=== PATIENT | female | born 1965 | race Caucasian/White ===

== ENCOUNTER 2023-06-19 13:15 | Emergency (ER) | payer OTHER ==
[~2023-06-19] VITALS: Ht 167.6 cm; Wt 78.0 kg
[~2023-06-19 13:15] MED LIST: AMLO5 PO; ASPI81CH PO; FLONASE ALLERG9.9 ML; HYOS.125 SL; IBUP600 PO; MECL12.5 PO; NEOPOLHCSU RIGHTEAR; Norco 5-325 Ta1 EACH PO; ONDA4 PO; OXYACE7.5T PO; PROC25S PR
[2023-06-19 14:17] LABS: BASOPHILS ABSOLUTE AUTO 0.08 K/mm3 (0.00-0.23); BASOPHILS PERCENT AUTO 1 % (0-2); EOSINOPHILS ABSOLUTE AUTO 0.13 K/mm3 (0.00-0.68); EOSINOPHILS PERCENT AUTO 1 % (0-6); Hematocrit 39.4 % (33.0-51.0); Hemoglobin 13.4 g/dL (11.5-16.0); IMMATURE GRAN ABSOLUTE AUTO 0.05 K/mm3 (0.00-0.10); IMMATURE GRAN PERCENT AUTO 1 % (0-1); LYMPHOCYTES ABSOLUTE AUTO 2.94 K/mm3 (0.84-5.20); LYMPHOCYTES PERCENT AUTO 32 % (21-46); MONOCYTES ABSOLUTE AUTO 0.58 K/mm3 (0.16-1.47); MONOCYTES PERCENT AUTO 6 % (4-13); Mean Corpuscular HGB 32.4 pg (26.0-34.0); Mean Corpuscular Volume 95 fL (80-100); Mean Platelet Volume 9.7 fL (9.1-12.4); NEUTROPHILS ABSOLUTE AUTO 5.38 K/mm3 (1.96-9.15); NEUTROPHILS PERCENT AUTO 59 % (41-73); Platelet Count 349 K/mm3 (150-400); RDW Coefficient Variation 13.1 % (11.7-14.2); RDW Standard Deviation 46.5 fL (35.1-46.3); Red Blood Cell Count 4.13 M/mm3 (3.80-5.20); White Blood Cell Count 9.16 K/mm3 (4.00-11.30)
[2023-06-19 14:43] LABS: Albumin, Blood 3.7 g/dL (3.4-5.0); Albumin/Globulin Ratio 1.2 (0.8-1.8); Bilirubin, Total 0.3 mg/dL (0.1-1.0); Bun/Creatinine Ratio 22.2 (12.0-20.0); Calcium, Blood 8.8 mg/dL (8.5-10.1); Creatinine, Blood 0.72 mg/dL (0.40-1.00); Potassium, Blood 3.6 mmol/L (3.5-5.5); Total Protein, Blood 6.7 g/dL (6.4-8.2)
[2023-06-19 18:15] VITALS: BP 140/81
== END 2023-06-19 18:13 | disposition home or self-care (01) ==
LOC: ER 13:15
PROVIDERS: Physician Assistant
DX: R51.9 Headache, unspecified (principal); Z79.899 Other long term (current) drug therapy; Z79.82 Long term (current) use of aspirin; Z87.891 Personal history of nicotine dependence
CPT/HCPCS: 70450; 70496; 80053; 85025; 93005; 93010; 96361; 96374-59; 96375-59; 99284-25; J0780; J1100; J1200; J2405; J7030; Q9967

== ENCOUNTER 2023-10-01 15:22 | Inpatient (IN) | payer OTHER ==
[~2023-10-01] VITALS: Ht 170.2 cm; Wt 85.7 kg
[2023-10-01 16:02] LABS: BASOPHILS ABSOLUTE AUTO 0.06 K/mm3 (0.00-0.23); BASOPHILS PERCENT AUTO 0 % (0-2); EOSINOPHILS ABSOLUTE AUTO 0.04 K/mm3 (0.00-0.68); EOSINOPHILS PERCENT AUTO 0 % (0-6); Hematocrit 39.5 % (33.0-51.0); Hemoglobin 13.4 g/dL (11.5-16.0); IMMATURE GRAN ABSOLUTE AUTO 0.06 K/mm3 (0.00-0.10); IMMATURE GRAN PERCENT AUTO 0 % (0-1); LYMPHOCYTES ABSOLUTE AUTO 2.22 K/mm3 (0.84-5.20); LYMPHOCYTES PERCENT AUTO 14 % (21-46); MONOCYTES ABSOLUTE AUTO 1.52 K/mm3 (0.16-1.47); MONOCYTES PERCENT AUTO 9 % (4-13); Mean Corpuscular HGB 32.3 pg (26.0-34.0); Mean Corpuscular HGB Conc 33.9 g/dL (31.5-36.5); Mean Corpuscular Volume 95 fL (80-100); Mean Platelet Volume 9.8 fL (9.1-12.4); NEUTROPHILS ABSOLUTE AUTO 12.24 K/mm3 (1.96-9.15); NEUTROPHILS PERCENT AUTO 76 % (41-73); Platelet Count 335 K/mm3 (150-400); RDW Coefficient Variation 12.9 % (11.7-14.2); RDW Standard Deviation 45.2 fL (35.1-46.3); Red Blood Cell Count 4.15 M/mm3 (3.80-5.20); White Blood Cell Count 16.14 K/mm3 (4.00-11.30)
[2023-10-01 16:29] LABS: Albumin, Blood 3.8 g/dL (3.4-5.0); Bun/Creatinine Ratio 13.7 (12.0-20.0); Calcium, Blood 9.4 mg/dL (8.5-10.1); Creatinine, Blood 0.8 mg/dL (0.40-1.00); Globulin, Blood 3.9 g/dL (2.2-4.0); Potassium, Blood 4.1 mmol/L (3.5-5.5); Total Protein, Blood 7.7 g/dL (6.4-8.2)
[2023-10-01 17:19] LABS: Source, Urine Clean Catch
[2023-10-01 17:24] LABS: Appearance, Urine Clear (Clear); Bilirubin, Urine Neg (Neg); Blood, Urine Neg (Neg); Color, Urine Yellow (P-Yellow); Glucose Qualitative, Urine Neg (Neg); Ketones, Urine Neg (Neg); Leukocyte Esterase, Urine Neg (Neg); Nitrite, Urine Neg (Neg); Protein, Urine 1+ (Neg); Urobilinogen, Urine NORM (Normal)
--- NOTE | 2023-10-01 21:27 | NUR ---
REPORT RECIEVED FROM MYRIAM VILLASENOR RN AT 2120 AND AWAITING T/F TO ROOM 338.
[2023-10-01 21:41] VITALS: BP 141/80
[2023-10-01] MEDS ORDERED: AFRIN15 M6 (21:54)
--- NOTE | 2023-10-02 05:30 | NUR ---
T/F AND SUMMARY: PT T/F'D TO ROOM 338 VIA W/C W/ AT BEDSIDE AT 2138. SHE'S A/OX4, CALLS APPROPRIATELY TO SPECIFY NEEDS AND IS PLEASANT AND COOPERATIVE W/CARE. SHE'S AWARE OF LIMITATIONS AND IS UP INDEPENDENTLY BUT KNOWS TO CALL FOR ASSIST PRN. LR INFUSES AT 125 ML/HR AND PT IS TOLERATING CLEAR LIQ'S/ICE CHIPS. INTERMITTENT NAUSEA AND LLQ ABDO PAIN PERSISTS. PRN ZOFRAN, NORCO AND FENTANYL RECIEVED FOR TOLERABLE RELIEF. SHE REQUESTED NASAL SPRAY DECONGESTANT AT HS PER HOME, MADE AWARE AND MED WAS RX'D AND RECIEVED. NO ACUTE CHANGES, VSS/AFEBRILE. WCTM AND REPORT TO DAY RN.
[2023-10-02 05:33] LABS: BASOPHILS ABSOLUTE AUTO 0.04 K/mm3 (0.00-0.23); BASOPHILS PERCENT AUTO 0 % (0-2); EOSINOPHILS ABSOLUTE AUTO 0.03 K/mm3 (0.00-0.68); EOSINOPHILS PERCENT AUTO 0 % (0-6); Hematocrit 35.5 % (33.0-51.0); Hemoglobin 12.1 g/dL (11.5-16.0); IMMATURE GRAN ABSOLUTE AUTO 0.07 K/mm3 (0.00-0.10); IMMATURE GRAN PERCENT AUTO 1 % (0-1); LYMPHOCYTES ABSOLUTE AUTO 1.88 K/mm3 (0.84-5.20); LYMPHOCYTES PERCENT AUTO 13 % (21-46); MONOCYTES ABSOLUTE AUTO 1.39 K/mm3 (0.16-1.47); MONOCYTES PERCENT AUTO 9 % (4-13); Mean Corpuscular HGB 31.9 pg (26.0-34.0); Mean Corpuscular HGB Conc 34.1 g/dL (31.5-36.5); Mean Corpuscular Volume 94 fL (80-100); NEUTROPHILS ABSOLUTE AUTO 11.48 K/mm3 (1.96-9.15); NEUTROPHILS PERCENT AUTO 77 % (41-73); Platelet Count 304 K/mm3 (150-400); RDW Coefficient Variation 12.8 % (11.7-14.2); RDW Standard Deviation 44.2 fL (35.1-46.3); Red Blood Cell Count 3.79 M/mm3 (3.80-5.20); White Blood Cell Count 14.89 K/mm3 (4.00-11.30)
[2023-10-02 06:08] LABS: Calcium, Blood 8.7 mg/dL (8.5-10.1); Creatinine, Blood 0.72 mg/dL (0.40-1.00); Potassium, Blood 3.6 mmol/L (3.5-5.5)
[2023-10-02 06:54] VITALS: BP 132/89
[2023-10-02 07:38] VITALS: BP 126/86
[2023-10-02 15:50] VITALS: BP 141/77
[2023-10-02 19:43] VITALS: BP 138/70
--- NOTE | 2023-10-02 19:46 | NUR ---
SHIFT SUMMARY A&O X 4, VSS. MEDICATED FOR C/O PAIN WITH GOOD RELIEF STATED BY PT. ALSO MEDICATED FOR C/O NAUSEA WITH GOOD RELIEF STATED BY PT. IV ABX GIVEN ORDERED. IS INDEPENDENT FOR RESTROOM USE. APPETITE IS GOOD, IS ON CLR LIQS. PLAN IS FOR PAIN CONTROL, ABX TIL WBC, SED RSTE & CRP DECRESE THEN HOME TO FOLLOW UP WITH GI FOR AN OUT PT COLONOSCOPY.
--- NOTE | 2023-10-03 01:38 | NUR ---
UPDATE PT WOKE UP TO IV OUT OF RIGHT FOREARM, PRESSURE APPLIED AND BANDAGE. NEW IV STARTED.
--- NOTE | 2023-10-03 04:04 | NUR ---
SHIFT SUMMARY NO ACUTE CHANGES. PT IS A&O X4, COOPERATIVE WITH CARE AND ABLE TO MAKE NEEDS KNOWN. INDEPENDENT TO BATHROOM. PAIN ASSESSED; MEDICATED PER EMAR-PT STATES RELIEF. DENIES CHEST PAIN/PRESSURE/TIGHTNESS. BED IS LOCKED IN THE LOWEST POSITION WITH CALL LIGHT IN REACH. NO DISTRESS NOTED AT THIS TIME.
[2023-10-03 04:43] VITALS: BP 137/66
[2023-10-03 05:34] LABS: BASOPHILS ABSOLUTE AUTO 0.04 K/mm3 (0.00-0.23); BASOPHILS PERCENT AUTO 0 % (0-2); EOSINOPHILS ABSOLUTE AUTO 0.11 K/mm3 (0.00-0.68); EOSINOPHILS PERCENT AUTO 1 % (0-6); Hemoglobin 10.8 g/dL (11.5-16.0); IMMATURE GRAN ABSOLUTE AUTO 0.05 K/mm3 (0.00-0.10); IMMATURE GRAN PERCENT AUTO 0 % (0-1); LYMPHOCYTES ABSOLUTE AUTO 2.67 K/mm3 (0.84-5.20); LYMPHOCYTES PERCENT AUTO 23 % (21-46); MONOCYTES ABSOLUTE AUTO 1.13 K/mm3 (0.16-1.47); MONOCYTES PERCENT AUTO 10 % (4-13); Mean Corpuscular HGB Conc 33.8 g/dL (31.5-36.5); Mean Corpuscular Volume 95 fL (80-100); Mean Platelet Volume 10.1 fL (9.1-12.4); NEUTROPHILS ABSOLUTE AUTO 7.75 K/mm3 (1.96-9.15); NEUTROPHILS PERCENT AUTO 66 % (41-73); Platelet Count 273 K/mm3 (150-400); RDW Coefficient Variation 12.8 % (11.7-14.2); RDW Standard Deviation 44.8 fL (35.1-46.3); Red Blood Cell Count 3.37 M/mm3 (3.80-5.20); White Blood Cell Count 11.75 K/mm3 (4.00-11.30)
[2023-10-03 06:10] LABS: Bun/Creatinine Ratio 12.7 (12.0-20.0); Calcium, Blood 8.6 mg/dL (8.5-10.1); Creatinine, Blood 0.71 mg/dL (0.40-1.00); Potassium, Blood 3.3 mmol/L (3.5-5.5)
[2023-10-03 07:27] VITALS: BP 147/78
[2023-10-03 15:21] VITALS: BP 145/72
--- NOTE | 2023-10-03 18:35 | NUR ---
SHIFT SUMMARY A&O X 4, VSS. NO ACUTE CHANGES THIS SHIFT. MEDICATED FOR C/O PAIN & NAUSEA PER EMAR WITH GOOD RELIEF STATED BY PT. APPETITE IS OK, IS MARIS CLR LIQ DIET. IS INDEPENDENT IN THE ROOM FOR RESTROOM USE. WALKED HALLWAYS THIS AFTERNOON. FAMILY VISITED TODAY. PLAN IS LIKELY HOME WITH PO ABX AND OUT PT F/U WITH GI DOC.
[2023-10-03 19:51] VITALS: BP 149/72
[2023-10-04 03:54] VITALS: BP 142/83
--- NOTE | 2023-10-04 04:21 | NUR ---
SHIFT SUMMARY NO ACUTE CHANGES THIS SHIFT. PATIENT HAS NOT SLEPT WELL TONIGHT R/T IV PUMP ALARMING. PATIENT IS INDEPENDENT IN ROOM TO RESTROOM. C/O PAIN-PAIN ASSESSED AND MEDICATED PER EMAR-RELIEF REPORTED BY PATIENT FROM PO PAIN MEDS. PATIENT IS HUNGRY BUT UNDERSTANDS THE CLEAR LIQUID DIET. IV PATENT AND INFUSING LR PER EMAR. BED IS LOCKED IN THE LOWEST POSITION WITH CALL LIGHT IN REACH FOR SAFETY.
[2023-10-04 05:56] LABS: BASOPHILS ABSOLUTE AUTO 0.04 K/mm3 (0.00-0.23); BASOPHILS PERCENT AUTO 1 % (0-2); EOSINOPHILS ABSOLUTE AUTO 0.16 K/mm3 (0.00-0.68); EOSINOPHILS PERCENT AUTO 2 % (0-6); Hematocrit 32.4 % (33.0-51.0); Hemoglobin 10.8 g/dL (11.5-16.0); IMMATURE GRAN ABSOLUTE AUTO 0.04 K/mm3 (0.00-0.10); IMMATURE GRAN PERCENT AUTO 1 % (0-1); LYMPHOCYTES ABSOLUTE AUTO 2.21 K/mm3 (0.84-5.20); LYMPHOCYTES PERCENT AUTO 31 % (21-46); MONOCYTES ABSOLUTE AUTO 0.76 K/mm3 (0.16-1.47); MONOCYTES PERCENT AUTO 11 % (4-13); Mean Corpuscular HGB 31.8 pg (26.0-34.0); Mean Corpuscular HGB Conc 33.3 g/dL (31.5-36.5); Mean Corpuscular Volume 95 fL (80-100); Mean Platelet Volume 10.2 fL (9.1-12.4); NEUTROPHILS ABSOLUTE AUTO 3.95 K/mm3 (1.96-9.15); NEUTROPHILS PERCENT AUTO 55 % (41-73); Platelet Count 291 K/mm3 (150-400); RDW Coefficient Variation 12.7 % (11.7-14.2); RDW Standard Deviation 44.6 fL (35.1-46.3); White Blood Cell Count 7.16 K/mm3 (4.00-11.30)
[2023-10-04 06:32] LABS: Bun/Creatinine Ratio 13.5 (12.0-20.0); Calcium, Blood 8.9 mg/dL (8.5-10.1); Creatinine, Blood 0.74 mg/dL (0.40-1.00); Potassium, Blood 3.3 mmol/L (3.5-5.5)
[2023-10-04 07:42] VITALS: BP 141/86
[2023-10-04 16:08] VITALS: BP 166/71
--- NOTE | 2023-10-04 18:17 | NUR ---
SHIFT SUMMARY PATIENT CONTINUES TO HAVE RLQ ABDOMINAL PAIN/DISCOMFORT. PATIENT INDEPENDENT IN THE ROOM. PATIENT ADVANCED TO REGULAR DIET FOR DINNER. PATIENT IS HOPEFUL TO GO HOME TOMORROW. CONTINUE TO INFUSE IV ANTIBIOTICS ORDERED.
[2023-10-04 19:49] VITALS: BP 154/70
[2023-10-05 04:24] VITALS: BP 156/64
--- NOTE | 2023-10-05 04:26 | NUR ---
SHIFT SUMMARY NO ACUTE CHANGES. PATIENT IS A.O X4 COOPERATIVE WITH CARE. PATIENT INDEPENDENT IN ROOM. PAIN ASSESSED AND MEDICATED PER EMAR-MEDICATED X1 AT THIS TIME. IS AT BEDSIDE WITH PATIENT. CALLS APPROPRIATELY. BED IS LOCKED IN THE LOWEST POSITION WITH CALL LIGHT IN REACH FOR SAFETY.
[2023-10-05 08:03] VITALS: BP 149/75
[2023-10-05 15:04] VITALS: BP 155/83
--- NOTE | 2023-10-05 17:11 | NUR ---
SHIFT SUMMARY Pt remains A&Ox3 this shift. VSS. RLQ pain managed with po regime. Meds given to ast with BM. PO antibiotics given. Tolerating reg diet. Ambulating independently to bathroom. No further needs id or verbalized at this time.
[2023-10-05 20:31] VITALS: BP 145/85
[2023-10-06 03:24] VITALS: BP 133/65
--- NOTE | 2023-10-06 05:13 | NUR ---
SUMMARY PT RESTING QUIETLY IN BED, PT WAKES EASILY, PT INDEPENDENT IN THE ROOM, MED PER EMAR FOR PAIN, SPOUSE IN THE ROOM WITH THE PT, PATIENT IS HOPEFUL TO DC HOME TODAY, VSS, WILL CONT TO MONITOR
[2023-10-06 07:58] VITALS: BP 153/78
[2023-10-06] MEDS ORDERED: HYDR1TAB94 PO (12:22)
[2023-10-06] MEDS ORDERED: AMOCLA875 PO (12:22)
--- NOTE | 2023-10-06 13:32 | NUR ---
DISCHARGE ORDERS RECEIVED. DISCHARGE PAPERWORK SIGNED AND PATIENT LEFT THE FLOOR WITH DISCHARGE PACKET, PERSONAL BELONGINGS VIA ESCORT BY SALAD CHEF.
== END 2023-10-06 13:36 | disposition home or self-care (01) | DRG 373 ==
LOC: ER 15:22 → MEDS 19:18
PROVIDERS: Student in an Organized Health Care Education/Training Program; Surgery; ADMIT Surgery
DX: K65.1 Peritoneal abscess (principal); I10 Essential (primary) hypertension; F17.210 Nicotine dependence, cigarettes, uncomplicated; J32.9 Chronic sinusitis, unspecified; R73.9 Hyperglycemia, unspecified; Z90.49 Acquired absence of other specified parts of digestive tract; Z85.828 Personal history of other malignant neoplasm of skin
CPT/HCPCS: 36415; 74177; 80048; 80053; 83690; 85025; 96365-59; 96375; 99285-25; A9270; J0295; J1885; J2405; J3010; J7030; J7050; J7120; Q9967

== ENCOUNTER 2023-12-19 01:23 | Observation (INO) | payer OTHER ==
[2023-12-19] VITALS (18 sets, daily range): BP systolic 144–190; BP diastolic 68–174
[~2023-12-19] VITALS: Ht 170.2 cm; Wt 77.1 kg
[~2023-12-19 01:23] MED LIST changes: +AFRIN15 M6; +AMOCLA875 PO; +HYDR1TAB94 PO
[2023-12-19 02:16] LABS: BASOPHILS ABSOLUTE AUTO 0.07 K/mm3 (0.00-0.23); BASOPHILS PERCENT AUTO 1 % (0-2); EOSINOPHILS ABSOLUTE AUTO 0.12 K/mm3 (0.00-0.68); EOSINOPHILS PERCENT AUTO 1 % (0-6); Hematocrit 41.9 % (33.0-51.0); Hemoglobin 14.3 g/dL (11.5-16.0); IMMATURE GRAN ABSOLUTE AUTO 0.07 K/mm3 (0.00-0.10); IMMATURE GRAN PERCENT AUTO 1 % (0-1); LYMPHOCYTES ABSOLUTE AUTO 4.04 K/mm3 (0.84-5.20); LYMPHOCYTES PERCENT AUTO 34 % (21-46); MONOCYTES ABSOLUTE AUTO 0.93 K/mm3 (0.16-1.47); MONOCYTES PERCENT AUTO 8 % (4-13); Mean Corpuscular HGB 31.6 pg (26.0-34.0); Mean Corpuscular HGB Conc 34.1 g/dL (31.5-36.5); Mean Corpuscular Volume 93 fL (80-100); Mean Platelet Volume 9.7 fL (9.1-12.4); NEUTROPHILS ABSOLUTE AUTO 6.64 K/mm3 (1.96-9.15); NEUTROPHILS PERCENT AUTO 56 % (41-73); Platelet Count 387 K/mm3 (150-400); RDW Coefficient Variation 12.8 % (11.7-14.2); RDW Standard Deviation 43.7 fL (35.1-46.3); Red Blood Cell Count 4.52 M/mm3 (3.80-5.20); White Blood Cell Count 11.87 K/mm3 (4.00-11.30)
[2023-12-19 03:03] LABS: Albumin, Blood 3.8 g/dL (3.4-5.0); Bilirubin, Total 0.3 mg/dL (0.1-1.0); Calcium, Blood 10.1 mg/dL (8.5-10.1); Creatinine, Blood 0.9 mg/dL (0.40-1.00); Globulin, Blood 3.8 g/dL (2.2-4.0); Potassium, Blood 3.4 mmol/L (3.5-5.5); Total Protein, Blood 7.6 g/dL (6.4-8.2)
[2023-12-19 04:15] LABS: Source, Urine Clean Catch
[2023-12-19 04:37] LABS: Bilirubin, Urine Neg (Neg); Blood, Urine Neg (Neg); Glucose Qualitative, Urine Neg (Neg); Ketones, Urine Neg (Neg); Leukocyte Esterase, Urine 2+ (Neg); Nitrite, Urine Neg (Neg); Protein, Urine 1+ (Neg); Specific Gravity, Urine 1.015 (1.003-1.022); Urobilinogen, Urine NORM (Normal)
[2023-12-19 05:04] LABS: Appearance, Urine Clear (Clear); Color, Urine Yellow (P-Yellow)
[2023-12-19 05:06] LABS: Bacteria Few /hpf; Red Blood Cells, Urine 0-2 /hpf (0-2); Squamous Epithelial Cells Not Seen /hpf (Few)
[2023-12-19] MEDS ORDERED: AMLODIPINE BESY10 MG PO (05:38)
[2023-12-19 07:01] LABS: International Normalized Ratio 0.97; Prothrombin Time Results 10.2 Sec (9.7-11.5)
--- NOTE | 2023-12-19 09:29 | NUR ---
12/19/23 0928 MALDONADO JAY NOTED RED, SCRATCH LIKE TRACEY ON RIGHT LOWER ABD PRIOR TO OR BRING BACK. PROVIDER AWARE.
--- NOTE | 2023-12-19 18:52 | NUR ---
SHIFT SUMMARY POD0 LAP ROSA MARIA, A/OX4, VSS, TOLERATING PO AFTER HAVING INTERMINTENT NAUSEA T/O THE SHIFT, PAIN MANAGED PER EMAR, PLAN TO DC TOMORROW ONCE PHARMACY OPENS SO THEY CAN ASSEMBLY MACHINE SET UP MECHANIC THEIR PRESCRIPTIONS SENT IN BY MD. NO ACUTE EVENTS THIS SHIFT, CALL LIGHT IN REACH.
[2023-12-20 05:01] VITALS: BP 119/83
--- NOTE | 2023-12-20 05:55 | NUR ---
SHIFT SUMMARY POD 1 LAP ROSA MARIA. NO ACUTE CHANGES OVERNIGHT. VSS. TOLERATING ORALS. AMBULATING/VOIDING INDEPENDENTLY. LAP SITE x3 C/D/I. PT REPORTS PAIN TOLERABLE, MEDICATED PER EMAR. PT S/O AT BEDSIDE OVERNIGHT. ANTICIPATED DISCHARGE LATER TODAY. CALL LIGHT WITHIN REACH, BED IN LOWEST POSITION, WILL REPORT TO DAY RN.
[2023-12-20 06:30] LABS: BASOPHILS ABSOLUTE AUTO 0.04 K/mm3 (0.00-0.23); BASOPHILS PERCENT AUTO 0 % (0-2); EOSINOPHILS ABSOLUTE AUTO 0.07 K/mm3 (0.00-0.68); EOSINOPHILS PERCENT AUTO 1 % (0-6); Hematocrit 38.5 % (33.0-51.0); Hemoglobin 12.9 g/dL (11.5-16.0); IMMATURE GRAN ABSOLUTE AUTO 0.06 K/mm3 (0.00-0.10); IMMATURE GRAN PERCENT AUTO 1 % (0-1); LYMPHOCYTES ABSOLUTE AUTO 3.43 K/mm3 (0.84-5.20); LYMPHOCYTES PERCENT AUTO 30 % (21-46); MONOCYTES ABSOLUTE AUTO 1.18 K/mm3 (0.16-1.47); MONOCYTES PERCENT AUTO 10 % (4-13); Mean Corpuscular HGB 31.5 pg (26.0-34.0); Mean Corpuscular HGB Conc 33.5 g/dL (31.5-36.5); Mean Corpuscular Volume 94 fL (80-100); Mean Platelet Volume 9.8 fL (9.1-12.4); NEUTROPHILS ABSOLUTE AUTO 6.82 K/mm3 (1.96-9.15); NEUTROPHILS PERCENT AUTO 59 % (41-73); Platelet Count 315 K/mm3 (150-400); RDW Coefficient Variation 13.1 % (11.7-14.2); Red Blood Cell Count 4.09 M/mm3 (3.80-5.20)
[2023-12-20 07:17] LABS: Albumin, Blood 3.1 g/dL (3.4-5.0); Albumin/Globulin Ratio 0.9 (0.8-1.8); Bilirubin, Total 0.5 mg/dL (0.1-1.0); Bun/Creatinine Ratio 18.2 (12.0-20.0); Calcium, Blood 9.2 mg/dL (8.5-10.1); Creatinine, Blood 0.82 mg/dL (0.40-1.00); Globulin, Blood 3.4 g/dL (2.2-4.0); Magnesium, Blood 2.2 mg/dL (1.6-2.4); Potassium, Blood 3.7 mmol/L (3.5-5.5); Total Protein, Blood 6.5 g/dL (6.4-8.2)
[2023-12-20 07:49] VITALS: BP 126/69
--- NOTE | 2023-12-20 12:31 | NUR ---
DISCHARGE SUMMARY POD1 LAP ROSA MARIA, A/OX4, VSS, TOLERATING PO, DENIES N/V, INDEPENDENT IN THE ROOM, VOIDING WELL, PAIN WELL MANAGED PER EMAR. REMOVED IV ACCESS X2 FROM LEFT ARM AC AND HAND WHILE DISCUSSING DISCHARGE INSTRUCTIONS. DISCUSSED HOME CARE, MEDICATIONS, AND FOLLOW UP APPOINTMENTS. NO QUESTIONS AT THIS TIME, PT LEFT VIA WC TO PRIVATE AUTO TO GO HOME.
== END 2023-12-20 10:09 | disposition home or self-care (01) ==
LOC: ER 01:23 → SURS 01:24 → ERHOLD 01:24 → SURS 08:13
PROVIDERS: Emergency Medicine; Surgery; ADMIT Student in an Organized Health Care Education/Training Program
PROC: 0FT44ZZ Resection of Gallbladder, Percutaneous Endoscopic Approach (ICD-10-PCS; principal; 2023-12-19 08:00)
PROC: BF121ZZ Fluoroscopy of Gallbladder using Low Osmolar Contrast (ICD-10-PCS; principal; 2023-12-19 08:00)
DX: K80.12 Calculus of gallbladder with acute and chronic cholecystitis without obstruction (principal); I10 Essential (primary) hypertension; E78.5 Hyperlipidemia, unspecified; M17.11 Unilateral primary osteoarthritis, right knee; Z87.891 Personal history of nicotine dependence; N39.0 Urinary tract infection, site not specified; E87.6 Hypokalemia
CPT/HCPCS: 36415; 74177; 74300; 76705; 80053; 81001; 83605; 83690; 83735; 84484; 85025; 85610; 87086; 88304; 93005; 93010; 94762; 96365-59; 96375; 96375-59; 96376; 96376-59; 99285-25; A9270; C1729; G0378; J0690; J0694; J0780; J1100; J1170; J1885; J2250; J2270; J2371; J2405; J2704; J3010; J3480; J7050; J7120; Q9967

== ENCOUNTER 2024-09-29 12:05 | Emergency (ER) | payer OTHER ==
[~2024-09-29] VITALS: Ht 167.6 cm; Wt 77.1 kg
[~2024-09-29 12:05] MED LIST changes: +AMLODIPINE BESY10 MG PO; +CLIN150 PO; +IBU600 M1 PO
[2024-09-29] MEDS ORDERED: Ketorolac Tromethamine 15mg Vial IV ONE (12:30)
[2024-09-29] MEDS ORDERED: Ondansetron HCl 2 MG / ML 2ML Vial IV ONE ×2 (12:30→16:20)
[2024-09-29 12:53] LABS: BASOPHILS ABSOLUTE AUTO 0.07 K/mm3 (0.00-0.23); BASOPHILS PERCENT AUTO 0 % (0-2); EOSINOPHILS ABSOLUTE AUTO 0.02 K/mm3 (0.00-0.68); EOSINOPHILS PERCENT AUTO 0 % (0-6); Hematocrit 42.6 % (33.0-51.0); Hemoglobin 14.3 g/dL (11.5-16.0); IMMATURE GRAN PERCENT AUTO 1 % (0-1); LYMPHOCYTES PERCENT AUTO 15 % (21-46); MONOCYTES ABSOLUTE AUTO 1.44 K/mm3 (0.16-1.47); MONOCYTES PERCENT AUTO 8 % (4-13); Mean Corpuscular HGB 31.3 pg (26.0-34.0); Mean Corpuscular HGB Conc 33.6 g/dL (31.5-36.5); Mean Corpuscular Volume 93 fL (80-100); Mean Platelet Volume 10.3 fL (9.1-12.4); NEUTROPHILS ABSOLUTE AUTO 12.85 K/mm3 (1.96-9.15); NEUTROPHILS PERCENT AUTO 75 % (41-73); Platelet Count 317 K/mm3 (150-400); RDW Coefficient Variation 12.7 % (11.7-14.2); RDW Standard Deviation 43.6 fL (35.1-46.3); Red Blood Cell Count 4.57 M/mm3 (3.80-5.20); White Blood Cell Count 17.08 K/mm3 (4.00-11.30)
[2024-09-29 13:12] LABS: Albumin, Blood 3.7 g/dL (3.4-5.0); Albumin/Globulin Ratio 0.8 (0.8-1.8); Bun/Creatinine Ratio 14.4 (12.0-20.0); Calcium, Blood 9.6 mg/dL (8.5-10.1); Creatinine, Blood 1.11 mg/dL (0.40-1.00); Globulin, Blood 4.5 g/dL (2.2-4.0); Potassium, Blood 3.7 mmol/L (3.5-5.5); Total Protein, Blood 8.2 g/dL (6.4-8.2)
[2024-09-29 15:22] VITALS: BP 156/114
[2024-09-29] MEDS ORDERED: HYDROcodone 5-APAP 325 TAB PO ONE (15:45)
[2024-09-29] MEDS ORDERED: NS 1,000 ML IV SCH (16:20)
[2024-09-29] MEDS ORDERED: Piperacillin/Tazobactam Sod 4.5 GM in NS 100 ML IV ONE (16:20)
[2024-09-29] MEDS ORDERED: HYDR1TAB94 PO (17:16)
[2024-09-29] MEDS ORDERED: ONDA4ODT MM (17:16)
[2024-09-29] MEDS ORDERED: AMOCLA875 PO (17:16)
== END 2024-09-29 18:24 | disposition home or self-care (01) ==
LOC: ER 12:05
PROVIDERS: Physician Assistant
DX: K52.9 Noninfective gastroenteritis and colitis, unspecified (principal); F17.200 Nicotine dependence, unspecified, uncomplicated
CPT/HCPCS: 74177; 80053; 83690; 85025; 96374-59; 96375; 96376; 99284-25; A9270; J1885; J2405; J2543; J7030; Q9967